=== PATIENT | male | born 1985 | race Caucasian/White ===

== ENCOUNTER 2019-11-14 13:55 | Outpatient (REF) | payer MEDICAID, SELFPAY ==
[2019-11-18 07:42] LABS: Patient Race White; SARS-CoV-2 RNA Undetected (Undetected); SARS-CoV-2 Specimen Source Nasal
== END 2019-11-14 14:15 ==
LOC: NCHCN 13:55
PROVIDERS: PCP Nurse Practitioner Family; Visit Provider Nurse Practitioner Family
DX: Z20.828 Contact with and (suspected) exposure to other viral communicable diseases (principal)
CPT/HCPCS: U0003

== ENCOUNTER 2019-11-28 13:30 | Outpatient (REF) | payer MEDICAID, SELFPAY ==
[2019-12-01 10:57] LABS: Varicella IgG Antibody Negative (See Note)
== END 2019-11-28 13:50 ==
LOC: NCHCN 13:30
PROVIDERS: PCP Nurse Practitioner Family; Visit Provider Nurse Practitioner Family
DX: Z11.59 Encounter for screening for other viral diseases (principal)
CPT/HCPCS: 86787

== ENCOUNTER 2020-05-05 16:36 | Inpatient (IN) | payer MEDICAID, SELFPAY ==
[2020-05-05 16:39] VITALS: BP 121/75; PULSE 73; RESP 18; TEMP 36.5; O2SAT 95
--- NOTE | 2020-05-05 16:45 | DI.CT_ITS ---
EXAM: CT ABDOMEN PELVIS W CLINICAL HISTORY: right lower abdominal pain. TECHNIQUE: Imaging Protocol: Axial computed tomography images with coronal and sagittal reformatted images were created and reviewed CONTRAST MATERIAL: Intravenous: Omnipaque 100cc Oral: None COMPARISON: No exams were available for comparison FINDINGS: VISUALIZED LUNG BASES: No nodules nor pleural effusions evident. ABDOMEN: LIVER: There are no obvious focal hepatic lesions evident . GALLBLADDER/BILIARY: No obvious gallbladder pathology. CBD is not dilated. PANCREAS: No evidence of pancreatic mass nor dilatation of the pancreatic duct. SPLEEN: Spleen is not enlarged. No obvious intrasplenic lesions. Splenic and portal veins are paten t. ADRENALS: There are no significant adrenal masses. KIDNEYS:No cysts evident. No solid renal masses. No calculi nor hydronephrosis.. ABDOMINAL AORTA: Abdominal aorta is not enlarged. LYMPH NODES:There is no retroperitineal nor paraaortic adenopathy. ABDOMINAL WALL/GI: No evidence of significant anterior abdominal wall hernia. Long segment of distal small bowel loop is diffusely transmural edematous and there is some free flui d in the pelvis. Findings are consistent with enteritis/inflammatory bowel disease. PELVIS: GI: The appendix is retrocecal. Measures 7-8 millimeter diameter. Does not contain appendicular. V isaiah mild streaking around the appendix. No perforation. Appendix is filled with fluid. There is no air seen within the appendix. LYMPH NODES: There is no intrapelvic nor inguinal adenopathy. REPRODUCTIVE: No significant acute findings URINARY BLADDER: No calculi nor obvious masses evident OSSEOUS: No osseous lesions but there is ankylosis of the sacroiliac joints. IMPRESSION: 1. There is diffuse transmural enteritis of lung segment of the distal ileum. Most probably consiste nt with inflammatory bowel disease, particularly since there is also ankylosis of the sacroiliac join ts. 2. Small amount of free fluid in the pelvis. I suspect this is from the edema of the small bowel loo ps. 3. The stomach wall also appears somewhat edematous. 4. Appendix is fluid-filled with enhancing wall and exhibits diameter 7-8 millimeters. There is no a ir in the appendix. There is no appendicolith. No evidence of rupture. Possible low-grade a append icitis. The appendix is retrocecal in position. RADIATION DOSE DELIVERED: 658.38mGy.cm Total DLP DATA REPOSITORY: All CT scans at this facility are submitted to the National Radiology Data Registry (NRDR) Dose Index Registry (DIR) with the [employer] (A[employer]). RADIATION OPTIMIZATION: All CT scans at this facility use at least one of these dose optimization te chniques: automated exposure control; mA and/or kV adjustment per patient size (includes targeted exa ms where dose is matched to clinical indication); or iterative reconstruction.
--- NOTE | 2020-05-05 16:50 | ED.GENADUL_ITS ---
Discharge Plan Disposition Patient Disposition: [facility] INPATIENT Condition: Stable Discharge Details Chief Complaint: Abd Prob Clinical Impression: Abdominal pain, Enteritis Primary Care Provider: Regla Reyes ED Provider: Jovanni Yung Home Meds and New Rx's Prescriptions: No Action multivitamin [One Daily] 1 EACH tablet 1 ea PO DAILY RF: 0 testosterone cyp, micro (bulk) 5 GM powder 50 gm Miscellaneous WEEKLY RF: 0 levothyroxine 125 MCG tablet 1 tab PO DAILY RF: 0 ibuprofen 800 MG tablet 800 mg PO TID Qty: 30 RF: 0 fluoxetine 20 mg capsule 20 mg PO DAILY RF: 0 Enbrel SureClick 50 mg/mL (1 mL) pen injector 50 mg SUBCUT QWEEK RF: 0 Medical Decision Making 35 yo male who has had a prior total hysterectomy comes in with right lower abdominal pain since Sunday that he has never had before. He has had chills but no fevers and states nausea without vomit. Denies chest pain or dyspnea. He has tenderness in the left and right lower abdomen with guarding and no upper abdominal tenderness. Suspect appendicitis vs diverticulitis, will obtain labs and ct imaging patient remains stable and ct shows findings consistent with inflammatory bowel disease but also has findings that could be from early appendicitis. I consulted with Dr. Hernandez who reviewed the imaging and she did not feel ct showed evidence of appendicitis and felt patient did not need surgery but needed medical workup for inflammatory bowel disease. Recommends antibiotics and holding on steroids until biopsy is done. Spoke with Dr. Schmitt who accepts for admission Differential Diagnosis Differential Diagnosis: appendicitis, gastroenteritis, diverticulitis, sbo Imaging Data Radiologic Study: Attestation: I personally reviewed and interpreted this imaging study as follows: Radiologist's impression: IMPRESSION: 1. Findings suggest low-grade appendicitis 2. Enteritis of a long segment of distal ileum. This finding along with ankylosis of the sacroiliac joints is consistent with inflammatory bowel disease. 3. Enlarged inferior mesenteric lymph nodes. 4. Fecalized content in multiple loops of small bowel 5. Constipation Lab Data Lab results reviewed: Yes I reviewed the patient's lab results. HPI General Mode of arrival: ambulatory . Date/Time Provider Initiated Documentation: 05/05/20 16:37 . Limitations to Documentation: no limitations . Information obtained by: patient . History of Present Illness 35 year old M presents to the emergency department with the chief complaint of abdominal pain, described as moderate and severe, Quality is described as stabbing, and is localized to the abdomen. Patient reports no radiation. Patient started experiencing this day(s) (4) and it has been constant. No relieving factors improve symptom(s), No exacerbating factors reported . Patient did receive the following treatments prior to arrival, none Related Data Home Medications Medication Instructions Recorded Confirmed levothyroxine 1 tab PO DAILY 08/03/13 05/05/20 multivitamin [One Daily] 1 ea PO DAILY 06/18/14 05/05/20 testosterone cyp, micro (bulk) 50 gm MISCELLANEOUS WEEKLY 06/18/14 05/05/20 ibuprofen 800 mg PO TID #30 tablet 09/15/14 05/05/20 etanercept [Enbrel SureClick] 50 mg SUBCUT QWEEK 05/05/20 05/05/20 fluoxetine 20 mg PO DAILY 05/05/20 05/05/20 Previous Rx's Medication Instructions Recorded ibuprofen 800 mg PO TID #30 tablet 09/15/14 Allergies Allergy/AdvReac Type Severity Reaction Status Date / Time cefaclor [From Ceclor] AdvReac Severe Swelling/Ed Unverified 05/05/20 16:42 josefina lactose AdvReac Unverified 05/05/20 16:42 General Stated Complaint: Abd Prob PAPITO: 3 Review of Systems All systems reviewed & are unremarkable except as noted in HPI and below Constitutional Constitutional: Denies chills, Denies fever(s) and Denies weakness Cardiovascular Cardiovascular: Denies chest pain and Denies dyspnea Respiratory Respiratory: Denies cough and Denies dyspnea Gastrointestinal Gastrointestinal: Reports abdominal pain Genitourinary Genitourinary: Denies dysuria Neurologic Neurologic: Denies weakness [facility] Social History Smoking/Tobacco Use Status: Former Tobacco Use Smoking risk assessment performed?: Yes Alcohol Intake: never Drug use: Never Substance use type: does not use Do you feel safe at home: Yes Exam Const General: no acute distress Orientation: alert HENMT Head: normal to inspection Ears: external ears normal General nose exam: external nose normal Mouth: moist mucous membranes Eyes General: appearance normal, both eyes and all related structures Neck Neck: normal visual inspection Resp Effort & Inspection: normal respiratory effort and able to speak in complete sentences Cardio Rate: regular rate GI Palpation: soft and tender Skin General skin exam: no rashes or lesions noted Neuro General: patient alert and patient oriented x3 Extrem General: normal to inspection Psych Mental Status: mental status grossly normal Course Vital Signs Vital signs: Vital Signs Temperature 36.5 C 05/05/20 16:39 Pulse 73 05/05/20 16:39 Respiratory Rate 18 05/05/20 16:39 Blood Pressure 121/75 05/05/20 16:39 Pulse Oximetry 95 05/05/20 16:39 Temperature 36.5 C 05/05/20 16:39 Temperature Source Skin 05/05/20 16:39 Pulse 73 05/05/20 16:39 Respiratory Rate 18 05/05/20 16:39 Blood Pressure 121/75 05/05/20 16:39 Blood Pressure Position Sitting 05/05/20 16:39 Pulse Oximetry 95 05/05/20 16:39 Oxygen Delivery Method Room Air 05/05/20 16:39 Oxygen Flow Rate 0 05/05/20 16:39 Pain Level 9 05/05/20 16:39
[2020-05-05 17:14] LABS: Abs Immature Grans 0.02 10^3/uL (0.0-0.06); Absolute Basophil Count 0.03 10^3/uL (0.0-0.2); Absolute Eosinophil Count 0.12 10^3/uL (0.0-0.7); Absolute Monocyte Count 0.72 10^3/uL (0.1-0.8); Basophils % 0.5; HGB 17.2 g/dL (13.5-17.5); Immature Grans % 0.3; MCH 30.2 pg (27.0-33.0); MCHC 34.4 % (32.0-36.0); MCV 87.9 fL (80-95); MPV 11.5 fL (8.0-11.0); Neutrophils % 65.2; Nucleated RBC 0 %; Platelet Count 181 10^3/uL (130-400); RBC 5.69 10^6/uL (4.36-5.78); RDW 12.1 % (11.8-14.1); RDW-SD 39.2 fL; WBC 5.99 10^3/uL (4.4-10.8)
[2020-05-05] MEDS: Omnipaque 350 MG/ML 100 ML BTL IJ (17:18)
[2020-05-05] MEDS: Normal Saline - Diluent 50 ML VIAL IV (17:19)
[2020-05-05] MEDS: Normal Saline Flush 10 ML SYR IVP ×2 (17:19→20:38)
[2020-05-05] MEDS: Ketorolac 15 MG/ML VIAL IVP ×2 (17:27→23:13)
[2020-05-05] MEDS: Ondansetron 4 MG/2 ML VIAL IVP (17:27)
[2020-05-05] MEDS: Normal Saline 1,000 ML 1000 ML IV (17:27)
[2020-05-05 17:33] LABS: Bilirubin Negative (Negative); Blood Negative (Negative); Clarity Clear (Clear); Glucose Negative (Negative); Ketones Negative (Negative); Leukocyte Esterase Negative (Negative); Nitrite Negative (Negative); Specific Gravity 1.015 (1.005-1.025); Urobilinogen 0.2 EU/dL (Up TO 0.2)
[2020-05-05 17:36] LABS: ALT 17 U/L (16-63); AST 12 U/L (15-37); Albumin 3.6 g/dL (3.4-5.0); Alkaline Phosphatase 73 U/L (46-116); Anion Gap 6.9 mmol/L (3-11); BUN 14 mg/dL (7-18); Bilirubin, Direct 0.1 mg/dL (0.0-0.2); Bilirubin, Total 0.5 mg/dL (0.2-1.0); CO2 32.1 mmol/L (21.0-32.0); Calcium 8.8 mg/dL (8.5-10.1); Chloride 103 mmol/L (98-107); Glucose 91 mg/dL (74-106); Lipase 113 U/L (73-393); Potassium 4.1 mmol/L (3.5-5.1); Sodium 142 mmol/L (136-145); Total Protein 7.8 g/dL (6.4-8.2)
[2020-05-05 17:46] VITALS: RESP 16
--- NOTE | 2020-05-05 17:49 | DI.VRAD_ITS ---
PROCEDURE INFORMATION: Exam: CT Abdomen And Pelvis With Contrast Exam date and time: 05/05/2020 4:57 PM Age: 35 years old Clinical indication: Other: RT lower abd pain TECHNIQUE: Imaging protocol: Computed tomography of the abdomen and pelvis with contrast. Radiation optimization: All CT scans at this facility use at least one of these dose optimization techniques: automated exposure control; mA and/or kV adjustment per patient size (includes targeted exams where dose is matched to clinical indication); or iterative reconstruction. Contrast material: OMNIPAQUE 350; Contrast volume: 100 ml; Contrast route: INTRAVENOUS (IV); COMPARISON: No relevant prior studies available. FINDINGS: Liver: Normal. No mass. Gallbladder and bile ducts: Normal. No calcified stones. No ductal dilation. Pancreas: Normal. No ductal dilation. Spleen: Normal. No splenomegaly. Adrenal glands: Normal. No mass. Kidneys and ureters: Normal. No hydronephrosis. Stomach and bowel: Diffuse edema and thickening of the wall of a long segment of distal ileum with enhancement of the mucosa. This is consistent with enteritis. No fistula is identified. Moderate to large amount of stool in the colon. No evidence of obstruction. Large amount of gas in the rectum. Appendix: Mildly dilated appendix measuring 8 mm in diameter with a mildly thickened and enhancing wall and minimal periappendiceal soft tissue stranding. The appendix has a retrocecal position and extends posteriorly and superior from the cecum, best demonstrated axial series 4 images 41-44. Intraperitoneal space: Small amount of free fluid in the pelvis. Vasculature: Unremarkable. No abdominal aortic aneurysm. Lymph nodes: Enlarged mesenteric lymph nodes, especially in the right lower quadrant where there is a prominent conglomeration enlarged lymph nodes. This is best seen on axial series 4, images 40 through 51. Urinary bladder: Unremarkable as visualized. Reproductive: Unremarkable as visualized. Bones/joints: Degenerative disc disease at the lumbosacral junction. Ankylosis of the sacroiliac joints. Soft tissues: Unremarkable. IMPRESSION: 1. Findings suggest low-grade appendicitis 2. Enteritis of a long segment of distal ileum. This finding along with ankylosis of the sacroiliac joints is consistent with inflammatory bowel disease. 3. Enlarged inferior mesenteric lymph nodes. 4. Fecalized content in multiple loops of small bowel 5. Constipation THIS REPORT CONTAINS FINDINGS THAT MAY BE CRITICAL TO PATIENT CARE. The findings were verbally communicated via telephone conference with Jovanni Yung at 5:47 PM EDT on 05/05/2020. The findings were acknowledged and understood. Dictated and Authenticated by: Myriam Campuzano MD. Ordering:ANGELA Baig MD
[2020-05-05] MEDS: CIPROFLOXACIN 400 MG/200 ML BAG 200 MG IVPB (18:26)
[2020-05-05] MEDS: metroNIDAZOLE 500 MG/100 ML BAG 100 MG IVPB (18:26)
[2020-05-05 18:49] VITALS: BP 104/66; PULSE 57; RESP 16; TEMP 36.2; O2SAT 100
--- NOTE | 2020-05-05 19:34 | W.PM.HP.N ---
Date of service: 05/05/20 Time of Service: 19:34 Assessment and Plan Assessment and plan (1) Enteritis: Status: Acute Assessment and plan: Concerning for inflammatory bowel disease in person with ankylosing spondylitis. General surgery consulted. Suggested holding off on steroids for now. Considering colonoscopy with bx. Covering possible bacterial infectious etiology; patient with depressed immunity due to Enbrel. Cont Cipro and Flagyl IV that was initiated in the ED. Some mild relief in pain with Toradol IV in ED. Will continue prn. Dilaudid 0.5mg IV Q4H prn. PRN phenergan for nausea. 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 (4) Constipation: Status: Acute Assessment and plan: Initiate miralax BID and give Senna now. Surgery considering colonoscopy with bx so may initiate a bowel prep tomorrow. History of Present Illness History of Present Illness Chief Complaint: Abd pain Narrative: Cheng is a 35 yo whose gender identity is male and has a PMH of ankylosing spondylitis, meet's thyroiditis, recent kelsea esophagitis. He presented to the ED with a 5 day history of generalized lower abd pain. Pain described as stabbing. He has experienced nausea but no emesis. No diarrhea; tends to be constipated. + chills, no fever. No SOA, cough. Back discomfort that he thinks is due to being in bed for 5 days and not due to his ankylosis. In the ED his CT abd/pelvis showed: 1. Findings suggest low-grade appendicitis 2. Enteritis of a long segment of distal ileum. This finding along with ankylosis of the sacroiliac joints is consistent with inflammatory bowel disease. 3. Enlarged inferior mesenteric lymph nodes. 4. Fecalized content in multiple loops of small bowel 5. Constipation General surgery was consulted and will follow. The appendix findings were though to likely be to reactive disease related to the enteritis. WBC count normal. K+ normal. Mg+ ordered/pending. BUN and creatinine normal. Bilirubin normal AST 12 (low), ALT 17. No h/o inflammatory bowel. Review of Systems All systems reviewed & are unremarkable except as noted in HPI and below PFSH Social History Smoking/Tobacco Use Status: Former Tobacco Use Smoking risk assessment performed?: Yes Alcohol Intake: never Drug use: Never Substance use type: does not use Do you feel safe at home: Yes Meds Home Medications and Allergies Allergies Allergy/AdvReac Type Severity Reaction Status Date / Time cefaclor [From Ceclor] AdvReac Severe Swelling/Ed Unverified 05/05/20 16:42 josefina lactose AdvReac Unverified 05/05/20 16:42 Home Medications Medication Instructions Recorded Confirmed Type levothyroxine 1 tab PO DAILY 08/03/13 05/05/20 History multivitamin [One Daily] 1 ea PO DAILY 06/18/14 05/05/20 History testosterone cyp, micro (bulk) 50 gm MISCELLANEOUS WEEKLY 06/18/14 05/05/20 History ibuprofen 800 mg PO TID #30 tablet 09/15/14 05/05/20 Rx etanercept [Enbrel SureClick] 50 mg SUBCUT QWEEK 05/05/20 05/05/20 History fluoxetine 20 mg PO DAILY 05/05/20 05/05/20 History Exam Narrative Exam Narrative: Sitting on edge of bed. Const General: cooperative and no acute distress Nutritional Appearance: thin Orientation: alert and oriented to person Eyes Sclera: sclerae normal Pupils: PERRL Resp Effort & Inspection: normal respiratory effort Auscultation: clear to auscultation bilaterally Cardio Rate: regular rate Rhythm: regular rhythm Heart Sounds: S1 normal and S2 normal GI Palpation: soft and tender in the LLQ and in the RLQ; with no rebound tenderness Skin General skin exam: no rashes or lesions noted Neuro General: no focal motor deficits Cognition: normal cognition Speech: speech normal Extrem General: no pedal edema and no calf tenderness Psych Appearance: grossly normal Mental Status: mental status grossly normal Speech and Movement: speech and movement normal Affect: normal affect Results Labs Result diagrams: 05/05/20 16:50 05/05/20 16:50 Labs: Laboratory Results - last 24 hr 05/05/20 05/05/20 05/05/20 16:50 16:50 16:50 WBC 5.99 RBC 5.69 Hgb 17.2 Hct 50.0 MCV 87.9 MCH 30.2 MCHC 34.4 RDW 12.1 Plt Count 181 MPV 11.5 H Immature Gran % 0.3 Neutrophils % 65.2 Lymphocytes % 20.0 Monocytes % 12.0 Eosinophils % 2.0 Basophils % 0.5 Nucleated RBC % 0 Absolute Neutrophils 3.90 Absolute Lymphocytes 1.20 Absolute Monocytes 0.72 Absolute Eosinophils 0.12 Absolute Basophils 0.03 Sodium 142 Potassium 4.1 Chloride 103 Carbon Dioxide 32.1 H Anion Gap 6.9 BUN 14 Creatinine 1.0 Estimated GFR/1.73 m2 >= 60.00 Glucose 91 Calcium 8.8 Total Bilirubin 0.5 Conjugated Bilirubin 0.1 AST 12 L ALT 17 Alkaline Phosphatase 73 Total Protein 7.8 Albumin 3.6 Lipase 113 Urine Color Yellow Urine Clarity Clear Urine pH 7.0 Ur Specific [place] 1.015 Urine Protein Negative Urine Ketones Negative Urine Blood Negative Urine Nitrite Negative Urine Bilirubin Negative Urine Urobilinogen 0.2 Ur Leukocyte Esterase Negative Urine Glucose Negative COVID-19 Source 05/05/20 18:05 WBC RBC Hgb Hct MCV MCH MCHC RDW Plt Count MPV Immature Gran % Neutrophils % Lymphocytes % Monocytes % Eosinophils % Basophils % Nucleated RBC % Absolute Neutrophils Absolute Lymphocytes Absolute Monocytes Absolute Eosinophils Absolute Basophils Sodium Potassium Chloride Carbon Dioxide Anion Gap BUN Creatinine Estimated GFR/1.73 m2 Glucose Calcium Total Bilirubin Conjugated Bilirubin AST ALT Alkaline Phosphatase Total Protein Albumin Lipase Urine Color Urine Clarity Urine pH Ur Specific [place] Urine Protein Urine Ketones Urine Blood Urine Nitrite Urine Bilirubin Urine Urobilinogen Ur Leukocyte Esterase Urine Glucose COVID-19 Source Nasopharyx Last Vital Signs Temp 36.2 C L 05/05/20 18:49 Pulse 57 L 05/05/20 18:49 Resp 16 05/05/20 18:49 BP 104/66 05/05/20 18:49 Pulse Ox 100 05/05/20 18:49 COVID-19 Screening Have you, or household traveled for leisure in last 14 days?: No Had IN PERSON contact w/suspected or confirmed C-19 person: No
[2020-05-05 19:35] VITALS: BP 102/65; PULSE 60; RESP 17; TEMP 36.9; O2SAT 99
[2020-05-05 20:21] LABS: Magnesium 2.1 mg/dL (1.8-2.4)
[2020-05-05] MEDS: Heparin 5,000 UNITS/ML VIAL 5000 UNITS SC (20:36)
[2020-05-05] MEDS: HYDROmorphone 2 MG/ML VIAL 0.5 MG IVP (20:36)
[2020-05-05] MEDS: Normal Saline 1,000 ML 80 ML IV (20:36)
[2020-05-05] MEDS: Polyethylene Glycol 3350 17 GM PACKET PO (20:37)
[2020-05-05] MEDS: Senna TAB 1 TAB PO (20:38)
[2020-05-05 22:32] LABS: COVID-19 PCR Negative (Negative)
[2020-05-05 23:20] VITALS: BP 91/53; PULSE 64; RESP 18; TEMP 37.2; O2SAT 96
[2020-05-06] MEDS: metroNIDAZOLE 500 MG/100 ML BAG 100 MG IVPB ×3 (02:27→18:11)
[2020-05-06] MEDS: Heparin 5,000 UNITS/ML VIAL 5000 UNITS SC ×3 (04:19→20:05)
[2020-05-06] MEDS: Levothyroxine 125 MCG TAB PO (06:32)
[2020-05-06] MEDS: CIPROFLOXACIN 200 MG/100 ML BAG 100 MG IVPB ×2 (06:32→18:11)
[2020-05-06 07:26] LABS: Abs Immature Grans 0.01 10^3/uL (0.0-0.06); Absolute Basophil Count 0.02 10^3/uL (0.0-0.2); Absolute Eosinophil Count 0.17 10^3/uL (0.0-0.7); Absolute Lymphocyte Count 1.29 10^3/uL (1.2-3.4); Absolute Monocyte Count 0.56 10^3/uL (0.1-0.8); Absolute Neutrophil Count 2.55 10^3/uL (1.2-6.7); Basophils % 0.4; Eosinophils % 3.7; HCT 43.1 % (40.0-50.0); HGB 14.4 g/dL (13.5-17.5); Immature Grans % 0.2; MCH 29.7 pg (27.0-33.0); MCHC 33.4 % (32.0-36.0); MCV 88.9 fL (80-95); MPV 11.6 fL (8.0-11.0); Monocytes % 12.2; Neutrophils % 55.5; Nucleated RBC 0 %; Platelet Count 151 10^3/uL (130-400); RBC 4.85 10^6/uL (4.36-5.78); RDW 11.9 % (11.8-14.1); RDW-SD 39.2 fL
[2020-05-06 07:48] LABS: ALT 10 U/L (16-63); AST 8 U/L (15-37); Albumin 2.8 g/dL (3.4-5.0); Alkaline Phosphatase 57 U/L (46-116); Anion Gap 6.3 mmol/L (3-11); BUN 11 mg/dL (7-18); Bilirubin, Total 0.4 mg/dL (0.2-1.0); CO2 29.7 mmol/L (21.0-32.0); Calcium 8.4 mg/dL (8.5-10.1); Chloride 106 mmol/L (98-107); Glucose 89 mg/dL (74-106); Potassium 4.2 mmol/L (3.5-5.1); Sodium 142 mmol/L (136-145); Total Protein 6.4 g/dL (6.4-8.2)
[2020-05-06 08:15] VITALS: BP 86/54; PULSE 53; RESP 18; TEMP 36.4; O2SAT 98
[2020-05-06] MEDS: Polyethylene Glycol 3350 17 GM PACKET PO (08:24)
[2020-05-06] MEDS: FLUoxetine 20 MG CAP PO (08:24)
[2020-05-06 08:56] LABS: C-Reactive Protein 3.42 mg/dL (0.0-0.3)
--- NOTE | 2020-05-06 09:08 | PDOC.CMIN ---
- If Service Date Differs Date of service: 05/06/20 Time of Service: 09:08 Care Management Initial Assess REASON FOR HOSPITALIZATION:: Enteritis PAST MEDICAL HISTORY/PAST SURGICAL HISTORY:: ankylosing spondylitis PREVIOUS FUNCTIONAL STATUS/SOCIAL/FAMILY SUPPORTS:: Cheng lives in a single family home in [place] with 2 roomates. He has recently (November,) relocated back to the area from [facility] where he has been living for the past 4 years. 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 He [id number] 2 women as his strongest supports but neither one lives in the area. Cheng has ankylosing spondylitis which limits some activites but is independent with all self care and ADL. he receives food stamps but no other services. CURRENT FUNCTIONAL STATUS:: Cheng was sitting up in bed when CM met with him. He was pleasant and open to conversation. Cheng shared that he did not sleep well last night and is tired today. He attributed his lack of sleep to pain and being in a different environment with unfamiliar sounds and routines. Cheng grew up in [place], [place] and has an older brother and a sister. Cheng talked a bit about his past medical issues and current condition. 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 He did share that he continues to receive assistance from the [employer]. ADVANCE DIRECTIVES:: none on file. not intereested at this time Has patient been provided with info about the portal/API?: Yes Did the patient sign up for the portal?: No CODE STATUS:: Full Code INSURANCE COVERAGE / FINANCIAL ISSUES:: Medicaid CURRENT HOME/COMMUNITY SERVICES/EQUIPMENT:: [employer] PRIMARY CARE PHYSICIAN:: michelle Reyes POTENTIAL DISCHARGE NEEDS:: Follow up with PCP and discharge plan of care PATIENT/FAMILY EDUCATION NEEDS:: Review of discharge instructions, follow up plan, limitations, [employer] TRANSPORTATION:: via private vehicle with friends PLAN:: Cheng will likely return home with no new services. He will folllow up with his surgeon, PCP and discharge plan of care and transport with friends. CM will continue to support Cheng and assess fro discharge planning needs.
[2020-05-06] MEDS: Normal Saline 1,000 ML 80 ML IV ×2 (11:51→22:55)
--- NOTE | 2020-05-06 13:02 | SCONE_ITS ---
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 Toney. He feels there is a high likelihood of croh'ns. He is o cipro/flagyl. stool studies were not done and I did order these. Although he has been on abx for 12 hrs. CRP/pANCA ordered as well. We will plan on doing a CE in the am. risk: bleeding/infection/perforation of colon (which means surgery) and complications of anesthesia (aspiration). We decided that we did not want to start steroids at this point- w/ out more of a definative answer. The pt is not in critical condition and is stable. Further recommendations to follow after CE. CRp was 2.4 (5) Enteritis: Status: Acute History of Present Illness Narrative: The patient is a 35-year-old who's gender identity is male. He underwent gender reassignment surgery in 2007. He has been on hormone therapy longstanding. On 05/05, He presented to the ED with about 4 to 5 days of abdominal pain. He has not traveled outside of the [facility]. He denies any unusual foods or activities. He has not had a change in medications or supplements. He has had no recent contact with anyone who has been ill. There are no new pets in the home. He denies any trauma or accidents. He normally does not have problems with abdominal pain; he has never had anything like this before. His bowels are normally regular. He has no problems with constipation or diarrhea or bloody bm's. The pain is diffuse but he points more to his tayler-umbilical area. he complains of abdominal pain and distention. He has actually been obstipated. He has not vomited. He is passing gas. he has not had problems with abdominal pain or infections in the past. He was recently diagnosed with ankylosing spondylitis and has been on Enbrel every 2 weeks. He has held the Enbrel for the last 2 weeks because he was not feeling well. He just started the Enbrel in January 2020. He thinks he has had the ankylosing spondylitis for quite some time but it was not diagnosed until recently. He has a paternal cousin who is 5 years younger than him who does have Crohn's. There is no family history of colorectal cancer. Since he was admitted to the floor, he thinks he feels maybe a little bit better. He has no appetite. The pain is slightly better. He has not had a bowel movement since he has been up on the floor. No fever and chills. No nausea vomiting. He has not had any weight loss prior to this admission. Hosp H&P: He presented to the ED with a 5 day history of generalized lower abd pain. Pain described as stabbing. He has experienced nausea but no emesis. No diarrhea; tends to be constipated. + chills, no fever. No SOA, cough. Back discomfort that he thinks is due to being in bed for 5 days and not due to his a nkylosis. 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 Person who has undergone gender reassignment surgery Surgical History S/P arthroscopic knee surgery S/P bilateral mastectomy S/p bilateral myringotomy with tube placement S/P KIRTI (total abdominal hysterectomy) s/p SBO also S/P wisdom tooth extraction Social History Smoking/Tobacco Use Status: Former Tobacco Use Smoking risk assessment performed?: Yes Alcohol Intake: never Drug use: Never Substance use type: does not use Do you feel safe at home: Yes Exam Const General: cooperative, healthy appearing, comfortable, no acute distress, well developed and well groomed Nutritional Appearance: average body habitus and well nourished Orientation: alert, awake and oriented x3 HENMT Head: normal to inspection, normocephalic and atraumatic Ears: hearing grossly normal bilaterally and external ears normal General nose exam: external nose normal Face and sinus: normal facial exam and sinuses nontender Mouth: oral mucosae normal, lip normal, tongue normal and moist mucous membranes Teeth and gingiva: dentition normal Eyes General: appearance normal, both eyes and all related structures Conjunctivae: conjunctivae normal Sclera: sclerae normal Pupils: PERRL Neck Neck: normal visual inspection and full ROM Chest Chest: normal inspection of the chest Resp Effort & Inspection: normal respiratory effort, able to speak in complete s entences, no cough, no nasal flaring, not tachypneic and no use of accessory muscles Auscultation: clear to auscultation bilaterally, no rales, no rhonchi and no wheezes Cardio Jugular venous pressure: no JVD Rate: regular rate Rhythm: regular rhythm GI Inspection: normal to inspection, no edema and distended Palpation: soft, no hernias, no masses, tender (mild) and No ascites Auscultation: hypoactive bowel sounds Other: not done Skin General skin exam: no rashes or lesions noted Trauma: no lacerations or abrasions Neuro General: patient alert, patient oriented x3, oriented, gait normal, moves all extremities, no focal motor deficits and CN's II-XI intact bilaterally Cognition: normal cognition Speech: speech normal Gait: normal gait Motor: muscle tone normal throughout Extrem General: normal to inspection, full ROM and no clubbing, cyanosis or edema Psych Appearance: grossly normal and well kempt Mental Status: mental status grossly normal Speech and Movement: speech and movement normal Affect: normal affect Results Last Vital Signs Temp 36.4 C L 05/06/20 08:15 Pulse 53 L 05/06/20 08:15 Resp 18 05/06/20 08:15 BP 86/54 L 05/06/20 08:15 Pulse Ox 98 05/06/20 08:15 Labs Result diagrams: 05/06/20 06:55 05/06/20 06:55 Labs: Laboratory Results - last 24 hr 05/05/20 05/05/20 05/05/20 16:50 16:50 16:50 WBC 5.99 RBC 5.69 Hgb 17.2 Hct 50.0 MCV 87.9 MCH 30.2 MCHC 34.4 RDW 12.1 Plt Count 181 MPV 11.5 H Immature Gran % 0.3 Neutrophils % 65.2 Lymphocytes % 20.0 Monocytes % 12.0 Eosinophils % 2.0 Basophils % 0.5 Nucleated RBC % 0 Absolute Neutrophils 3.90 Absolute Lymphocytes 1.20 Absolute Monocytes 0.72 Absolute Eosinophils 0.12 Absolute Basophils 0.03 Sodium 142 Potassium 4.1 Chloride 103 Carbon Dioxide 32.1 H Anion Gap 6.9 BUN 14 Creatinine 1.0 Estimated GFR/1.73 m2 >= 60.00 Glucose 91 Calcium 8.8 Magnesium Total Bilirubin 0.5 Conjugated Bilirubin 0.1 AST 12 L ALT 17 Alkaline Phosphatase 73 C-Reactive Protein Total Protein 7.8 Albumin 3.6 Lipase 113 Urine Color Yellow Urine Clarity Clear Urine pH 7.0 Ur Specific [place] 1.015 Urine Protein Negative Urine Ketones Negative Urine Blood Negative Urine Nitrite Negative Urine Bilirubin Negative Urine Urobilinogen 0.2 Ur Leukocyte Esterase Negative Urine Glucose Negative ANCA Immunofluorescen ANCA Titer ANCA Pattern COVID-19 Source SARS-CoV-2 (PCR) 05/05/20 05/05/20 05/06/20 16:50 18:05 06:55 WBC RBC Hgb Hct MCV MCH MCHC RDW Plt Count MPV Immature Gran % Neutrophils % Lymphocytes % Monocytes % Eosinophils % Basophils % Nucleated RBC % Absolute Neutrophils Absolute Lymphocytes Absolute Monocytes Absolute Eosinophils Absolute Basophils Sodium 142 Potassium 4.2 Chloride 106 Carbon Dioxide 29.7 Anion Gap 6.3 BUN 11 Creatinine 1.0 Estimated GFR/1.73 m2 >= 60.00 Glucose 89 Calcium 8.4 L Magnesium 2.1 Total Bilirubin 0.4 Conjugated Bilirubin AST 8 L ALT 10 L Alkaline Phosphatase 57 C-Reactive Protein 3.42 H Total Protein 6.4 Albumin 2.8 L Lipase Urine Color Urine Clarity Urine pH Ur Specific [place] Urine Protein Urine Ketones Urine Blood Urine Nitrite Urine Bilirubin Urine Urobilinogen Ur Leukocyte Esterase Urine Glucose ANCA Immunofluorescen ANCA Titer ANCA Pattern COVID-19 Source Nasopharyx SARS-CoV-2 (PCR) Negative 05/06/20 05/06/20 06:55 Unknown WBC 4.60 RBC 4.85 Hgb 14.4 D Hct 43.1 MCV 88.9 MCH 29.7 MCHC 33.4 RDW 11.9 Plt Count 151 MPV 11.6 H Immature Gran % 0.2 Neutrophils % 55.5 Lymphocytes % 28.0 Monocytes % 12.2 Eosinophils % 3.7 Basophils % 0.4 Nucleated RBC % 0 Absolute Neutrophils 2.55 Absolute Lymphocytes 1.29 Absolute Monocytes 0.56 Absolute Eosinophils 0.17 Absolute Basophils 0.02 Sodium Potassium Chloride Carbon Dioxide Anion Gap BUN Creatinine Estimated GFR/1.73 m2 Glucose Calcium Magnesium Total Bilirubin Conjugated Bilirubin AST ALT Alkaline Phosphatase C-Reactive Protein Total Protein Albumin Lipase Urine Color Urine Clarity Urine pH Ur Specific [place] Urine Protein Urine Ketones Urine Blood Urine Nitrite Urine Bilirubin Urine Urobilinogen Ur Leukocyte Esterase Urine Glucose ANCA Immunofluorescen Cancelled ANCA Titer Cancelled ANCA Pattern Cancelled COVID-19 Source SARS-CoV-2 (PCR)
[2020-05-06] MEDS: HYDROmorphone 2 MG/ML VIAL 0.5 MG IVP (13:29)
[2020-05-06] MEDS: Normal Saline 50 ML 200 ML (13:30)
[2020-05-06] MEDS: Bisacodyl 5 MG TABEC 10 MG PO ×2 (13:30→18:11)
--- NOTE | 2020-05-06 15:02 | PGE_ITS ---
Date of Service Date of service: 05/06/20 Time of Service: 15:02 Assessment and Plan Assessment and plan (1) Enteritis: Status: Acute Assessment and plan: was started on cipro/flagyl, surgery following and plan for endoscopy tomorrow. prep started. 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 surgery following. continue pain management. surgery following, continue antibiotics and closely monitor. discussed with Dr Fermin Subjective Subjective Patient reports: no new complaints, feels better, tolerating liquids well and afebrile Exam Const General: cooperative, frail appearing and ill appearing chronically Nutritional Appearance: thin Orientation: alert, awake and oriented x3 HENMT Head: normal to inspection, normocephalic and atraumatic Mouth: moist mucous membranes abnormal Resp Effort & Inspection: normal respiratory effort Auscultation: clear to auscultation bilaterally Cardio Rate: regular rate Rhythm: regular rhythm GI Inspection: normal to inspection Palpation: soft Auscultation: normal bowel sounds Skin General skin exam: no rashes or lesions noted Neuro General: patient alert, patient awake, patient oriented x3 and no focal motor deficits Extrem General: normal to inspection, full ROM and no pedal edema Objective Last Vital Signs Temp 36.4 C L 05/06/20 08:15 Pulse 53 L 05/06/20 08:15 Resp 18 05/06/20 08:15 BP 86/54 L 05/06/20 08:15 Pulse Ox 98 05/06/20 08:15 Laboratory Results - last 24 hr 05/05/20 05/05/20 05/05/20 16:50 16:50 16:50 WBC 5.99 RBC 5.69 Hgb 17.2 Hct 50.0 MCV 87.9 MCH 30.2 MCHC 34.4 RDW 12.1 Plt Count 181 MPV 11.5 H Immature Gran % 0.3 Neutrophils % 65.2 Lymphocytes % 20.0 Monocytes % 12.0 Eosinophils % 2.0 Basophils % 0.5 Nucleated RBC % 0 Absolute Neutrophils 3.90 Absolute Lymphocytes 1.20 Absolute Monocytes 0.72 Absolute Eosinophils 0.12 Absolute Basophils 0.03 Sodium 142 Potassium 4.1 Chloride 103 Carbon Dioxide 32.1 H Anion Gap 6.9 BUN 14 Creatinine 1.0 Estimated GFR/1.73 m2 >= 60.00 Glucose 91 Calcium 8.8 Magnesium Total Bilirubin 0.5 Conjugated Bilirubin 0.1 AST 12 L ALT 17 Alkaline Phosphatase 73 C-Reactive Protein Total Protein 7.8 Albumin 3.6 Lipase 113 Urine Color Yellow Urine Clarity Clear Urine pH 7.0 Ur Specific [place] 1.015 Urine Protein Negative Urine Ketones Negative Urine Blood Negative Urine Nitrite Negative Urine Bilirubin Negative Urine Urobilinogen 0.2 Ur Leukocyte Esterase Negative Urine Glucose Negative ANCA Immunofluorescen ANCA Titer ANCA Pattern COVID-19 Source SARS-CoV-2 (PCR) 05/05/20 05/05/20 05/06/20 16:50 18:05 06:55 WBC RBC Hgb Hct MCV MCH MCHC RDW Plt Count MPV Immature Gran % Neutrophils % Lymphocytes % Monocytes % Eosinophils % Basophils % Nucleated RBC % Absolute Neutrophils Absolute Lymphocytes Absolute Monocytes Absolute Eosinophils Absolute Basophils Sodium 142 Potassium 4.2 Chloride 106 Carbon Dioxide 29.7 Anion Gap 6.3 BUN 11 Creatinine 1.0 Estimated GFR/1.73 m2 >= 60.00 Glucose 89 Calcium 8.4 L Magnesium 2.1 Total Bilirubin 0.4 Conjugated Bilirubin AST 8 L ALT 10 L Alkaline Phosphatase 57 C-Reactive Protein 3.42 H Total Protein 6.4 Albumin 2.8 L Lipase Urine Color Urine Clarity Urine pH Ur Specific [place] Urine Protein Urine Ketones Urine Blood Urine Nitrite Urine Bilirubin Urine Urobilinogen Ur Leukocyte Esterase Urine Glucose ANCA Immunofluorescen ANCA Titer ANCA Pattern COVID-19 Source Nasopharyx SARS-CoV-2 (PCR) Negative 05/06/20 05/06/20 06:55 Unknown WBC 4.60 RBC 4.85 Hgb 14.4 D Hct 43.1 MCV 88.9 MCH 29.7 MCHC 33.4 RDW 11.9 Plt Count 151 MPV 11.6 H Immature Gran % 0.2 Neutrophils % 55.5 Lymphocytes % 28.0 Monocytes % 12.2 Eosinophils % 3.7 Basophils % 0.4 Nucleated RBC % 0 Absolute Neutrophils 2.55 Absolute Lymphocytes 1.29 Absolute Monocytes 0.56 Absolute Eosinophils 0.17 Absolute Basophils 0.02 Sodium Potassium Chloride Carbon Dioxide Anion Gap BUN Creatinine Estimated GFR/1.73 m2 Glucose Calcium Magnesium Total Bilirubin Conjugated Bilirubin AST ALT Alkaline Phosphatase C-Reactive Protein Total Protein Albumin Lipase Urine Color Urine Clarity Urine pH Ur Specific [place] Urine Protein Urine Ketones Urine Blood Urine Nitrite Urine Bilirubin Urine Urobilinogen Ur Leukocyte Esterase Urine Glucose ANCA Immunofluorescen Cancelled ANCA Titer Cancelled ANCA Pattern Cancelled COVID-19 Source SARS-CoV-2 (PCR)
[2020-05-06] MEDS: Polyethylene Glycol 3350 238 GM BTL PO (15:49)
[2020-05-06 15:53] VITALS: BP 99/63; PULSE 50; RESP 17; TEMP 36.7; O2SAT 97
--- NOTE | 2020-05-06 15:57 | PHA.REVIEW ---
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 (Acute) Ankylosing hyperostosis [forestier], sacral and sacrococcygeal region (Acute) Abdominal pain (Acute) Enteritis (Acute) cefaclor [From Ceclor] Adverse Reaction (Severe, Unverified 05/05/20 16:42) Swelling/Edema lactose Adverse Reaction (Unverified 05/05/20 16:42) Height 5 ft 8 in Weight 64 kg - Renal Dosing Renal Dosing: BUN 11 mg/dL (7-18) 05/06/20 06:55 Creatinine 1.0 mg/dL (0.70-1.30) 05/06/20 06:55 Medications needing adjustments: Reviewed - Anticoagulation Anticoagulation: Hgb 14.4 g/dL (13.5-17.5) D 05/06/20 06:55 Hct 43.1 % (40.0-50.0) 05/06/20 06:55 Plt Count 151 10^3/uL (130-400) 05/06/20 06:55 Creatinine 1.0 mg/dL (0.70-1.30) 05/06/20 06:55 DVT Prohphylaxis: N/A Therapeutic Anticoagulation: N/A - Opiate Usage Evaluate Pain Scale/Pains Meds: Reviewed Scheduled Bowel Reg ordered if on Opiates?: Yes - Relevant Labs Sodium 142 mmol/L (136-145) 05/06/20 06:55 Potassium 4.2 mmol/L (3.5-5.1) 05/06/20 06:55 Chloride 106 mmol/L (98-107) 05/06/20 06:55 Magnesium 2.1 mg/dL (1.8-2.4) 05/05/20 16:50 C-Reactive Protein 3.42 mg/dL (0.0-0.3) H 05/06/20 06:55 Electrolytes, C-Reactive P, ESR: Reviewed - DM Control DM Control: Glucose 89 mg/dL (74-106) 05/06/20 06:55 Insulin Dosing: N/A - Heart Failure/PR EF%, NITA's, B-Blockers, Diuretics: N/A - BP Control BP Control: Blood Pressure 86/54 If elevated: Reviewed - Qtc Review If Elevated: N/A - IV to PO Switch IV Medications: Reviewed - Home Meds Home Med List reviewed: Intervened Relevent Home Meds Not ordered & why?: enbrel (once weekly but has been off for 2 wks due to esophageal candidiasis), famotidine - just added per 90 day supply filled 2/3 per ext. rx history - Current meds Current Medication Order Review: Reviewed - Comments Comments/Follow Ups: Cipro 200mg IV q12h + Flagyl 500mg q8h
[2020-05-06] MEDS: Metoclopramide 10 MG/2 ML VIAL IVP (20:05)
[2020-05-06 23:43] VITALS: BP 99/62; PULSE 50; RESP 17; TEMP 36.5; O2SAT 98
[2020-05-07] MEDS: metroNIDAZOLE 500 MG/100 ML BAG 100 MG IVPB ×2 (01:23→09:59)
[2020-05-07] MEDS: Heparin 5,000 UNITS/ML VIAL 5000 UNITS SC ×2 (03:56→20:24)
[2020-05-07] MEDS: CIPROFLOXACIN 200 MG/100 ML BAG 100 MG IVPB (06:22)
[2020-05-07] MEDS: Levothyroxine 125 MCG TAB PO (06:22)
[2020-05-07 07:30] VITALS: BP 97/62; PULSE 50; RESP 13; TEMP 36.8; O2SAT 97
[2020-05-07] MEDS: FLUoxetine 20 MG CAP PO (08:08)
--- NOTE | 2020-05-07 11:09 | COLE_ITS ---
Date of service: 05/07/20 Time of Service: 11:10 Colonoscopy Report Date of procedure: 05/07/20 Pre-op diagnosis general: abdominal pain/enteritis on CT scan Post-op diagnosis procedure note: same Procedure: ce w/ bx Surgeon: Corrine Torres Anesthesia Type: General:No Airway Estimated blood loss (mL): 1 Pathology: other Complications: None Disposition: floor Prep: Miralax/Dulcolax Retraction Time: 12 mins Procedure Description: After informed consent was obtained the patient was taken to the procedure room and placed in a left decubitous position. Monitors were applied and a time out was done. The patients name, date of , procedure, allergies to medications and metal in their body was reviewed. The patient was then sedated. Once sedated and comfortable a rectal exam was done. External exam was normal. Internal exam revealed a normal sphincter tone and no palpable masses. The scope was then introduced and retrofelexed. No internal hemorrhoids were i dentified. The scope was then advanced to the cecum w/out difficulty. The TI and appendiceal orifice were identified. I Was not able to intubate the TI. The prep was good. The scope was then slowly retracted over 12 minutes back into the rectum. there Are no polyps, AVMs, or diverticula Visualized today. The mucosa is pink and healthy. Random biopsy was taken of the cecum and the rectum. All specimens are retrieved and no bleeding is noted. The scope was removed and the patient was woken up and taken back to Same day surgery in stable condition. The patient tolerated the procedure well and there were no immediate complications. Follow up: The patient should repeat the colonoscopy at age 44, unless they develop changes in bowel habits or other new gastrointestinal complaints.
--- NOTE | 2020-05-07 11:20 | BOWEL_PTH ---
PATIENT: Cheng Sanchez LOC: [id number]#:[id number] AGE/SX: 35/M ROOM: [id number] RE05/05/[address]: Alberto Schmitt MD : 1985 BED: A DIS: 05/09/2020 SPEC #: [id number] RECD: 05/07/20 12:51 STATUS: LOUISE REQ #: [id number] GREG: 05/07/20 11:[address]: Alberto Schmitt DEPT: Surgical Specimen RECD BY: Thu Andrade ENTERED: 05/07/20 12:52 SP TYPE: Bowel OTHR DR: MELY Tran PA Burnell,Regla Lochkart,DO Maykel Wetzel Aviva W Annick Kaufman, MD Leung, Christie Paul Pace, MD Carl B Petri, MD Deane Rankin, MD Stoiber, Laura M Tissues: 1 - BIOPSY BOWEL 2 - BIOPSY BOWEL Procedures: GROSS AND MICRO LEVEL 4 Comments: [id number]
[2020-05-07 12:04] VITALS: BP 84/50; PULSE 62; RESP 16; TEMP 36.5; O2SAT 97
[2020-05-07] MEDS: Breeza Beverage 473 ML BTL PO ×2 (13:02→13:03)
[2020-05-07] MEDS: Omnipaque 350 MG/ML 50 ML BTL IJ (13:03)
--- NOTE | 2020-05-07 13:10 | PGE_ITS ---
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 -will obtain CT w/ contrast -Enbrel has been held for the last 2-3wks -pd results of CT- prob start entereg. Qualifiers: Digestive disease complication type: unspecified complication Qualified Code(s): K50.119 - Crohn's disease of large intestine with unspecified complications Subjective Subjective Interval history since last seen: pt said he is feeling slightly better. Less pain and distention. He is passing gas. No blood w/ Bowel prepping. He had an EGD in [facility] at the beginning of August for dysphagia. This was how the fungal infections was found (and why he is holding the enbrel). Abdomen is soft and hypoactive but present BS. no peritonitis. Exam Resp Effort & Inspection: normal respiratory effort and able to speak in complete sentences Auscultation: clear to auscultation bilaterally Cardio Rate: regular rate Rhythm: regular rhythm GI Inspection: normal to inspection Palpation: soft, no hernias and tender (diffuse. minnimal ) Auscultation: hypoactive bowel sounds Objective Last Vital Signs Temp 36.5 C 05/07/20 12:04 Pulse 62 05/07/20 12:04 Resp 16 05/07/20 12:04 BP 84/50 L 05/07/20 12:04 Pulse Ox 97 05/07/20 12:04
--- NOTE | 2020-05-07 13:11 | PGE_ITS ---
Date of Service Date of service: 05/07/20 Time of Service: 13:12 Assessment and Plan Assessment and plan (1) Enteritis: Start date: 05/07/20 Start time: 13:16 Status: Acute Assessment and plan: Evidenced by CT, stomach wall also edematous Started on Cipro and flagyl day 2 Cscope by surgery today- unfortunately unable to pass terminal ileum d/t severe swelling. Will likely be started on steroids, surgery awaiting records from [facility]. This appears to be an IBD like chron's CT with oral contrast ordered, results pending. 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 surgery following. continue pain management. surgery following, continue antibiotics and closely monitor. discussed with Dr Fermin Subjective Subjective Patient reports: other Interval history since last seen: [place] [facility] [place] [place] Feeling nauseated. Pain most diffuse to RUQ. No evidence of gallbladder problems on CTA. He is sitting up in bed. Denies CP, SOB Exam Narrative Exam Narrative: Sitting on edge of bed. Const General: cooperative, no acute distress, frail appearing and ill appearing chronically Nutritional Appearance: thin Orientation: alert, awake, oriented x3 and oriented to person HENHI Head: normal to inspection, normocephalic and atraumatic Mouth: moist mucous membranes abnormal Eyes Sclera: sclerae normal Pupils: PERRL Resp Effort & Inspection: normal respiratory effort Auscultation: clear to auscultation bilaterally Cardio Rate: regular rate Rhythm: regular rhythm Heart Sounds: S1 normal and S2 normal GI Inspection: normal to inspection Palpation: soft and tender in the RLQ (more prominent in this quadarant and mid abd ) and in the LUQ; with no rebound tenderness Auscultation: normal bowel sounds Skin General skin exam: no rashes or lesions noted Neuro General: patient alert, patient awake, patient oriented x3 and no focal motor deficits Cognition: normal cognition Speech: speech normal Extrem General: normal to inspection, full ROM, no pedal edema and no calf tenderness Psych Appearance: grossly normal Mental Status: mental status grossly normal Speech and Movement: speech and movement normal Affect: normal affect Objective Last Vital Signs Temp 36.5 C 05/07/20 12:04 Pulse 62 05/07/20 12:04 Resp 16 05/07/20 12:04 BP 84/50 L 05/07/20 12:04 Pulse Ox 97 05/07/20 12:04
--- NOTE | 2020-05-07 13:14 | PDOC.CMPRO ---
- If Service Date Differs Date of service: 05/07/20 Time of Service: 13:14 Care Management Progress Note S/O:Cheng had an EGD with biopsy this morning. He also had a CT scan of the abdomen this afternoon so was out of his room for most of the day. Per nursing, Cheng was nauseated after his procedure this morning but responded well to a prn dose of Phenergan. he has not required any medication for pain. Cheng was sleeping this afternoon when CM came to see him and the decision was made not to wake him. A: Cheng is a 35 year old man admitted to [facility] on 05/05/20 with inflammatory bowel disease P:Cheng will likely return home with no new services. He will follow up with his surgeon, PCP and discharge plan of care and transport with friends. CM will continue to support Cheng and assess for discharge planning needs.
--- NOTE | 2020-05-07 13:38 | DI.CT_ITS ---
EXAM: CT ABDOMEN PELVIS W CLINICAL HISTORY: ? appendictiis TECHNIQUE: COMPARISON: CT CT ABDOMEN PELVIS W from 05/05/2020 FINDINGS: CT examination of the abdomen and pelvis was performed with bolus infusion of 100 cc of Omnipaque 350 . Images obtained through the lung bases are unremarkable. The liver appears normal with no evidence of a focal mass. Spleen is unremarkable in appearance.. Gallbladder and bile ducts are unremarkable. Pancreas is unremarkable in appearance. Adrenals appear normal bilaterally. Kidneys appear normal with no evidence of renal mass, hydronephrosis, or nephrolithiasis Note is made multiple enlarged mesenteric lymph nodes, most prominent in the right lower quadrant but extending to the central portion the mesentery. Abdominal aorta is of normal diameter and no major vascular abnormality is seen. Appendix is normal. Previously described abnormal distal small bowel is again noted with multiple loops irregular thick w alled bowel noted. The appendix appears normal on today's examination. There is moderate free fluid in the pelvis. There is question of irregular wall thickening rectosigm oid junction region. No free intraperitoneal air. No perforation or abscess identified. No significant abdominal wall hernia seen. Note is made of bilateral fused SI joints, the patient reportedly has a history of ankylosing spondyl itis. Impression: No evidence of appendicitis. Findings highly suggestive of inflammatory process involving portions o f the distal ileum and perhaps also the rectosigmoid. Free pelvic fluid and mesenteric adenopathy is also present consistent with an acute inflammatory process. Please correlate clinically regarding t he possibility of Crohn's disease. RADIATION DOSE DELIVERED: 730.35mGy.cm Total DLP 730.35mGy.cm Total DLP DATA REPOSITORY: All CT scans at this facility are submitted to the National Radiology Data Registry (NRDR) Dose Index Registry (DIR) with the [employer] (A[employer]). RADIATION OPTIMIZATION: All CT scans at this facility use at least one of these dose optimization te chniques: automated exposure control; mA and/or kV adjustment per patient size (includes targeted exa ms where dose is matched to clinical indication); or iterative reconstruction.
[2020-05-07 14:53] LABS: ANCA Interpretation Negative (Negative)
[2020-05-07 14:58] LABS: ANA Interpretation Negative (Negative)
[2020-05-07 15:33] VITALS: BP 100/64; PULSE 53; RESP 17; TEMP 36.4; O2SAT 98
[2020-05-07] MEDS: predniSONE 20 MG TAB 40 MG PO (15:42)
[2020-05-07] MEDS: Normal Saline 1,000 ML 80 ML IV (17:22)
[2020-05-07 23:14] LABS: Campylobacter PCR Negative (Negative); Salmonella PCR Negative (Negative); Shiga Toxin PCR Negative (Negative); Shigella/Enteroinvasive Ecoli Negative (Negative)
[2020-05-07 23:50] VITALS: BP 116/72; PULSE 58; RESP 18; TEMP 36.7; O2SAT 97
[2020-05-08] MEDS: Normal Saline Flush 10 ML SYR IVP ×3 (00:10→19:49)
[2020-05-08] MEDS: Ketorolac 15 MG/ML VIAL IVP ×3 (00:10→19:49)
[2020-05-08] MEDS: Heparin 5,000 UNITS/ML VIAL 5000 UNITS SC ×3 (04:56→19:34)
[2020-05-08] MEDS: Levothyroxine 125 MCG TAB PO (04:56)
[2020-05-08] MEDS: Normal Saline 1,000 ML 80 ML IV (05:28)
[2020-05-08 07:07] LABS: BUN 8 mg/dL (7-18); C-Reactive Protein 1.68 mg/dL (0.0-0.3); CREATININE 0.9 mg/dL (0.70-1.30); Calcium 8.7 mg/dL (8.5-10.1); Chloride 106 mmol/L (98-107); Glucose 101 mg/dL (74-106); Potassium 3.9 mmol/L (3.5-5.1); Sodium 141 mmol/L (136-145)
[2020-05-08 07:45] VITALS: BP 108/72; PULSE 58; RESP 16; TEMP 36.3; O2SAT 99
[2020-05-08] MEDS: FLUoxetine 20 MG CAP PO (07:46)
[2020-05-08] MEDS: predniSONE 20 MG TAB 40 MG PO (07:46)
[2020-05-08] MEDS: Polyethylene Glycol 3350 17 GM PACKET PO (07:51)
[2020-05-08] MEDS: Omeprazole 20 MG CAPCR PO (10:37)
--- NOTE | 2020-05-08 11:27 | W.PM.PROGNOT ---
Date of Service Date of service: 05/08/20 Time of Service: 11:27 Assessment and Plan Assessment and plan (1) Crohn's colitis: Status: Acute Assessment and plan: Cheng is a 35 year old who was admitted with abdominal pain and CT scan showing inflammation and thickening of the terminal ileum consistent with inflammatory bowel disease. The patient also has a history of ankylosing hyperostosis and was on enbrel for that. Colonoscopy was performed. Large bowel was normal. Unfortunately we were unable to advance the scope into the terminal ileum due to the swelling. Follow up CT scan with oral contrast showed increase in inflammation as well as increase in lymphadenopathy. Case was discussed with his Oven Roaster to make sure it was OK to start patient on prednisone while on Enbril. They recommended prednisone and to stop enbrel. They would like to see the patient once discharged and the plan will be for his to most likely start on greta instead of enbrel. This was discussed with patient. He will need to be discharged on 40 mg of prednisone daily x 7 days. Taper by 5 mg weekly. Follow up with Rheumatology at [facility] [place] within 1-2 weeks No follow up needed with General surgery Qualifiers: Digestive disease complication type: unspecified complication Qualified Code(s): K50.119 - Crohn's disease of large intestine with unspecified complications Subjective Subjective Interval history since last seen: Cheng is feeling better today. Pain has decreased. He still feels bloated. Most of his discomfort is in the right side. Exam Const General: cooperative, comfortable and no acute distress Orientation: alert and oriented x3 HENMT Head: normocephalic and atraumatic Resp Effort & Inspection: normal respiratory effort Auscultation: clear to auscultation bilaterally Cardio Rate: regular rate Rhythm: regular rhythm GI Inspection: normal to inspection Palpation: soft, no hepatosplenomegaly and tender (mild tenderness RLQ. No rebound or guarding) Auscultation: normal bowel sounds Objective Last Vital Signs Temp 97.3 F L 05/08/20 07:45 Pulse 58 L 05/08/20 07:45 Resp 16 05/08/20 07:45 BP 108/72 05/08/20 07:45 Pulse Ox 99 05/08/20 07:45 Laboratory Results - last 24 hr 05/06/20 05/06/20 05/08/20 06:55 21:57 06:35 Sodium 141 Potassium 3.9 Chloride 106 Carbon Dioxide 25.0 Anion Gap 10.0 BUN 8 Creatinine 0.9 Estimated GFR/1.73 m2 >= 60.00 Glucose 101 Calcium 8.7 C-Reactive Protein 1.68 H Stool Campylobacter PCR Negative Stool Salmonella PCR Negative Stool Shigella PCR Negative LOLI Titer Not Applicable LOLI Titer 2 Not Applicable LOLI Titer 3 Not Applicable LOLI Interpretation Negative ANCA Immunofluorescen Negative ANCA Titer Not Applicable ANCA Pattern Not Applicable Shiga Toxin (PCR) Negative
--- NOTE | 2020-05-08 13:23 | PDOC.CMPRO ---
- If Service Date Differs Date of service: 05/08/20 Time of Service: 13:23 Care Management Progress Note S/O: Cheng continues to improve and his diet is being advanced today. Per provider note, Cheng is experiencing less pain but still feels bloated. A complete blood count with differential is ordered for tomorrow morning. Lab work done today returns within normal limits with the exception of C-Reactive Protein which is high at 1.68. A: Cheng is a 35 year old male admitted to [facility] on 05/05/2020 for abdominal pain and inflammatory bowel disease. P: No change in plan. Cheng will likely return home with no new services. He will follow up with his [facility] zookeeper, PCP, and discharge plan of care and transport with friends. CM will continue to support Cheng and assess for discharge planning needs.
--- NOTE | 2020-05-08 14:01 | W.PM.PROGNOT ---
Date of Service Date of service: 05/08/20 Time of Service: 14:01 Assessment and Plan Assessment and plan (1) Crohn's colitis: Start date: 05/08/20 Start time: 14:09 Status: Acute Assessment and plan: Likely in setting of ankylosing hypersotosis, this is usually seen together. CT also suggests Chrons, Pain improved with Prednisone he will need to be on a long taper, with rheumatoloty f/u in 1 week, Surgery spoke with rheumatology and they will see him, stop enbrel and start patient on humaria, already feeling better in setting of steroids. Started on soft diet, recommend low fiber diet on discharge with advance as tolerated he is on oxycodone for pain this will also help with diarrhea. 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 surgery following. continue pain management. surgery following, continue antibiotics and closely monitor. discussed with Dr Cullen (5) Ankylosing hyperostosis [forestier], sacral and sacrococcygeal region: Start date: 05/08/20 Start time: 14:17 Status: Acute Assessment and plan: As above, he was on enbrel however will f/u with rheumatology and switch to greta, long steriod taper. Subjective Subjective Patient reports: feels better Interval history since last seen: Pain improved but continues to have on right side, percocet ordered for pain, this will also help with diarrhea. Able to eat without having nausea, continues to have diarrhea, 4 bouts this morning, hematest negative. Will monitor overnight. recommend low residue diet. Possible discharge tomorrow. Exam Narrative Exam Narrative: Sitting on edge of bed. Const General: cooperative, no acute distress, frail appearing and ill appearing chronically Nutritional Appearance: thin Orientation: alert, awake, oriented x3 and oriented to person [facility] Head: normal to inspection, normocephalic and atraumatic Mouth: moist mucous membranes abnormal Eyes Sclera: sclerae normal Pupils: PERRL Resp Effort & Inspection: normal respiratory effort Auscultation: clear to auscultation bilaterally Cardio Rate: regular rate Rhythm: regular rhythm Heart Sounds: S1 normal and S2 normal GI Inspection: normal to inspection Palpation: soft and tender (improved pain, RUQ pain with palpation with improvement) with no rebound tenderness Auscultation: normal bowel sounds Skin General skin exam: no rashes or lesions noted Neuro General: patient alert, patient awake, patient oriented x3 and no focal motor deficits Cognition: normal cognition Speech: speech normal Extrem General: normal to inspection, full ROM, no pedal edema and no calf tenderness Psych Appearance: grossly normal Mental Status: mental status grossly normal Speech and Movement: speech and movement normal Affect: normal affect Objective Last Vital Signs Temp 36.3 C L 05/08/20 07:45 Pulse 58 L 05/08/20 07:45 Resp 16 05/08/20 07:45 BP 108/72 05/08/20 07:45 Pulse Ox 99 05/08/20 07:45 Laboratory Results - last 24 hr 05/06/20 05/06/20 05/08/20 06:55 21:57 06:35 Sodium 141 Potassium 3.9 Chloride 106 Carbon Dioxide 25.0 Anion Gap 10.0 BUN 8 Creatinine 0.9 Estimated GFR/1.73 m2 >= 60.00 Glucose 101 Calcium 8.7 C-Reactive Protein 1.68 H Stool Campylobacter PCR Negative Stool Salmonella PCR Negative Stool Shigella PCR Negative LOLI Titer Not Applicable LOLI Titer 2 Not Applicable LOLI Titer 3 Not Applicable LOLI Interpretation Negative ANCA Immunofluorescen Negative ANCA Titer Not Applicable ANCA Pattern Not Applicable Shiga Toxin (PCR) Negative
[2020-05-08 15:47] VITALS: BP 123/72; PULSE 63; RESP 17; TEMP 36; O2SAT 99
[2020-05-08] MEDS: oxyCODONE 5 mg/Acetaminophen 325 mg TAB 1 TAB PO (15:51)
[2020-05-08 19:12] LABS: Calprotectin 482 mcg/g
[2020-05-08 23:42] VITALS: BP 122/70; PULSE 62; RESP 17; TEMP 36.6; O2SAT 98
[2020-05-09] MEDS: Omeprazole 20 MG CAPCR PO (06:52)
[2020-05-09] MEDS: Heparin 5,000 UNITS/ML VIAL 5000 UNITS SC ×2 (06:52→11:25)
[2020-05-09] MEDS: Levothyroxine 125 MCG TAB PO (06:52)
[2020-05-09 07:08] VITALS: BP 108/69; PULSE 46; RESP 18; TEMP 36.8; O2SAT 100
[2020-05-09 07:26] LABS: Abs Immature Grans 0.15 10^3/uL (0.0-0.06); Absolute Basophil Count 0.03 10^3/uL (0.0-0.2); Absolute Eosinophil Count 0.04 10^3/uL (0.0-0.7); Absolute Lymphocyte Count 1.77 10^3/uL (1.2-3.4); Absolute Monocyte Count 0.56 10^3/uL (0.1-0.8); Absolute Neutrophil Count 3.25 10^3/uL (1.2-6.7); Basophils % 0.5; Eosinophils % 0.7; HCT 40.1 % (40.0-50.0); HGB 13.6 g/dL (13.5-17.5); Immature Grans % 2.6; Lymphocytes % 30.5; MCH 29.6 pg (27.0-33.0); MCHC 33.9 % (32.0-36.0); MCV 87.2 fL (80-95); MPV 11.6 fL (8.0-11.0); Monocytes % 9.7; Nucleated RBC 0 %; Platelet Count 177 10^3/uL (130-400); RDW 12.2 % (11.8-14.1); RDW-SD 38.8 fL
[2020-05-09] MEDS: FLUoxetine 20 MG CAP PO (07:28)
[2020-05-09] MEDS: predniSONE 20 MG TAB 40 MG PO (07:28)
--- NOTE | 2020-05-09 10:37 | DSE_ITS ---
Date of service: 05/09/20 Time of Service: 10:37 DS: Diagnosis Discharge Diagnosis (1) Crohn's colitis: Start date: 05/09/20 Start time: 10:37 Status: Acute Asessment and Plan: Evidenced by CT, cscope done by Dr. Barth. unable to pass Internal Ileum d/t severe edema. CT with oral contrast ordered revealing: Findings highly suggestive of inflammatory process involving portions of the distal ileum and perhaps also the rectosigmoid. Free pelvic fluid and mesenteric adenopathy is also present consistent with an acute inflammatory process. Please correlate clinically regarding the possibility of Crohn's disease. Dr. Sue spoke with patients Dry House Attendant at [facility] Crohn's is often seen with ankylosis, they want to see Cheng in the office in the next week they want him on a long prednisone taper and will switch him to greta as an outpatient. He will need to be discharged on 40 mg of prednisone daily x 7 days. Taper by 5 mg weekly. 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 above case discussed with dr. azul Discharge Plan Disposition Patient Disposition: HOME Condition: Improving Discharge Details Reason For Visit: ABDOMINAL PAIN, INFLAMMATORY BOWEL DISEASE Admit Date/Time: 05/05/20 18:05 Admit Provider: Alberto Schmitt Attending Provider: Alberto Schmitt Primary Care Provider: Regla Reyes [facility] Course Hospital Course: 35 y.o M transgender from female, with PMH of total hysterectomy, ankylosing hyperostosis, hoshimotos thyroiditis, presented to [facility] ED with 5 day history of abdominal pain. Labs in ED unremarkable, however CT scan revealed: IMPRESSION: 1. There is diffuse transmural enteritis of lung segment of the distal ileum. Most probably consistent with inflammatory bowel disease, particularly since there is also ankylosis of the sacroiliac joints. 2. Small amount of free fluid in the pelvis. I suspect this is from the edema of the small bowel loops. 3. The stomach wall also appears somewhat edematous. 4. Appendix is fluid-filled with enhancing wall and exhibits diameter 7-8 millimeters. There is no air in the appendix. There is no appendicolith. No evidence of rupture. Possible low-grade a appendicitis. The appendix is retrocecal in position He was admitted to / for further management. He was initially placed on IV antibx however they were dcd after 2 days. Surgery was consulted. He was taken to OR for c-scope, Dr. Barth was unable to pass the TI d/t severe edema, oral contrast CT ordered this revealed. No evidence of appendicitis. Findings highly suggestive of inflammatory process involving portions of the distal ileum and perhaps also the rectosigmoid. Free pelvic fluid and mesenteric adenopathy is also present consistent with an acute inflammatory process. Please correlate clinically regarding the possibility of Crohn's disease. Patients Dry House Attendant was spoken with by surgery, and they recommended prednisone long taper, they want to seem him this week and will transition to him to [facility]. He is able to eat soft foods without nausea or vomiting, his pain is improved. Stools have improved. He is being discharged home on prednisone, pain medication, zofran prn nausea, and referral to health middle school sports coach. We will call Rheumatology to set up appt. He would like referral to health middle school sports coach and I will have dietary set one up. Home Meds and New Rx's Prescriptions: New omeprazole 20 mg Capsule,Delayed Release(Dr/Ec) 20 mg PO DAILY@0730 Qty: 30 RF: 0 prednisone 20 mg Tablet 40 mg PO DAILY Qty: 21 RF: 0 tramadol 50 mg tablet 50 mg PO DAILY Qty: 20 RF: 0 oxycodone [Roxicodone] 5 mg tablet 10 mg PO Q6H PRN PRNQty: 40 RF: 0 promethazine 12.5 mg tablet 12.5 mg PO Q6H PRNQty: 30 RF: 0 Continued multivitamin [One Daily] 1 EACH tablet 1 ea PO DAILY RF: 0 testosterone cyp, micro (bulk) 5 GM powder 50 gm Miscellaneous WEEKLY RF: 0 levothyroxine 125 MCG tablet 1 tab PO DAILY RF: 0 ibuprofen 800 MG tablet 800 mg PO TID Qty: 30 RF: 0 fluoxetine 20 mg capsule 20 mg PO DAILY RF: 0 Discontinued Enbrel SureClick 50 mg/mL (1 mL) pen injector 50 mg SUBCUT QWEEK RF: 0 famotidine 20 mg tablet 20 mg PO DAILY RF: 0 Discharge Instructions Instructions: Prednisone (By mouth), Crohn Disease (DC), Low Fiber Diet (DC), Enteritis (DC) Additional Instructions: We will call you with an appt for Rheumatology, if you do not here from us by Sunday call Reuse Technician Follow up with your PCP in 2 weeks Take pain medication prior to eating to help with pain Follow low fiber diet. I will have a health middle school sports coach follow up with you Take phenergan if you are feeling nauseated Take prednisone 40 mg daily for the next 5 days then take 35 mg for 7 days then your Dry House Attendant will continue to dose you down by 5 mg weekly and start you on greta. Take tramadol for pain first if this is not effective or you do not like the way it feels then you can try the roxicodone, you can take 5-10 mg as needed every 6 hours of the roxicodone. Referrals: Regla Reyes [Primary Care Provider] - (Will call patient will date and time of appointment. ) Miguelito Hernandez [OSTEOPATHIC DOCTOR] - (Will call patient will date and time of appointment. ) Activity:: Activity as Tolerated Equipment/Supplies:: No Equipment Needed Diet:: Other Discharge Orders Discharge Orders: Discharge Order (Routine); Ordered 05/09/20 Ordered By: Sofi Ross DS: Summary Time Spent with Patient providing and/or coordinating discharge services: Greater than 30 minutes (approx 60 mins spent discharging patient) Status at Discharge Functional status at discharge: independent ambulation Overall status at discharge: patient is progressing back to baseline Mental Status: mental status grossly normal Speech and Movement: speech and movement normal Mood: congruent mood Affect: normal affect Exam Narrative Exam Narrative: Sitting on edge of bed. Const General: cooperative, no acute distress, frail appearing and ill appearing chronically Nutritional Appearance: thin Orientation: alert, awake, oriented x3 and oriented to person HENMT Head: normal to inspection, normocephalic and atraumatic Mouth: moist mucous membranes abnormal Eyes Sclera: sclerae normal Pupils: PERRL Resp Effort & Inspection: normal respiratory effort Auscultation: clear to auscultation bilaterally Cardio Rate: regular rate Rhythm: regular rhythm Heart Sounds: S1 normal and S2 normal GI Inspection: normal to inspection Palpation: soft Auscultation: normal bowel sounds Skin General skin exam: no rashes or lesions noted Neuro General: patient alert, patient awake, patient oriented x3 and no focal motor deficits Cognition: normal cognition Speech: speech normal Extrem General: normal to inspection, full ROM, no pedal edema and no calf tenderness Psych Appearance: grossly normal Mental Status: mental status grossly normal Speech and Movement: speech and movement normal Mood: congruent mood Affect: normal affect DS: Data Vitals/I&O Vitals and I&O: Vital Signs Temperature 36.8 C 05/09/20 07:08 Temperature Source Tympanic 05/09/20 07:08 Pulse 46 L 05/09/20 07:08 Pulse Rhythm Regular 05/09/20 02:22 Respiratory Rate 18 05/09/20 07:08 Respiratory Effort Non-Labored 05/09/20 02:22 Respiratory Depth Normal 05/09/20 02:22 Respiratory Pattern Normal 05/09/20 02:22 Blood Pressure 108/69 05/09/20 07:08 Blood Pressure Position Sitting 05/05/20 16:39 Pulse Oximetry 100 05/09/20 07:08 Oxygen Delivery Method Room Air 05/09/20 07:08 Oxygen Flow Rate 0 05/09/20 07:08 Pain Level 3 05/09/20 07:26 Comment 05/07/20 23:50 Intake & Output 05/08/20 05/08/20 05/09/20 11:59 23:59 11:59 Intake Total 3580 / 4060 480 / 4060 240 / 240 Balance 3580 / 4060 480 / 4060 240 / 240 Intake: IV 1400 / 1400 Oral 2180 / 2660 480 / 2660 240 / 240 Other: Urine Color Yellow Yellow Urine Appearance Cloudy Clear Clear Urine Odor Normal Normal Comment Per pt. report, void x1 in the toilet. Per pt. report, void x1 in the toilet. voids independently in the bathroom Stool Occult Blood Negative Stool Size Small Stool Characteristics Soft Liquid Brown Voiding Methods Toilet Toilet Toilet Data Completed and Pending Completed studies during hospitalization [Text1]: IMPRESSION: 1. There is diffuse transmural enteritis of lung segment of the distal ileum. Most probably consistent with inflammatory bowel disease, particularly since there is also ankylosis of the sacroiliac joints. 2. Small amount of free fluid in the pelvis. I suspect this is from the edema o f the small bowel loops. 3. The stomach wall also appears somewhat edematous. 4. Appendix is fluid-filled with enhancing wall and exhibits diameter 7-8 millimeters. There is no air in the appendix. There is no appendicolith. No evidence of rupture. Possible low-grade a appendicitis. The appendix is retrocecal in position. Exam(s) a CT:CT abdomen & pelvis w EXAM: CT ABDOMEN PELVIS W CLINICAL HISTORY: ? appendictiis TECHNIQUE: COMPARISON: CT CT ABDOMEN PELVIS W from 05/05/2020 FINDINGS: CT examination of the abdomen and pelvis was performed with bolus infusion of 100 cc of Omnipaque 350. Images obtained through the lung bases are unremarkable. The liver appears normal with no evidence of a focal mass. Spleen is unremarkable in appearance.. Gallbladder and bile ducts are unremarkable. Pancreas is unremarkable in appearance. Adrenals appear normal bilaterally. Kidneys appear normal with no evidence of renal mass, hydronephrosis, or nephrolithiasis Note is made multiple enlarged mesenteric lymph nodes, most prominent in the right lower quadrant but extending to the central portion the mesentery. Abdominal aorta is of normal diameter and no major vascular abnormality is seen. Appendix is normal. Previously described abnormal distal small bowel is again noted with multiple loops irregular thick walled bowel noted. The appendix appears normal on today 's examination. There is moderate free fluid in the pelvis. There is question of irregular wall thickening rectosigmoid junction region. No free intraperitoneal air. No perforation or abscess identified. No significant abdominal wall hernia seen. Note is made of bilateral fused SI joints, the patient reportedly has a history of ankylosing spondylitis. Impression: No evidence of appendicitis. Findings highly suggestive of inflammatory process involving portions of the distal ileum and perhaps also the rectosigmoid. Free pelvic fluid and mesenteric adenopathy is also present consistent with an acute inflammatory process. Please correlate clinically regarding the possibility of Crohn's disease. Labs on day of discharge: Labs from last 24 hours 05/09/20 05/06/20 06:45 21:57 WBC 5.80 RBC 4.60 Hgb 13.6 Hct 40.1 MCV 87.2 MCH 29.6 MCHC 33.9 RDW 12.2 Plt Count 177 MPV 11.6 H Immature Gran % 2.6 Neutrophils % 56.0 Lymphocytes % 30.5 Monocytes % 9.7 Eosinophils % 0.7 Basophils % 0.5 Nucleated RBC % 0 Absolute Neutrophils 3.25 Absolute Lymphocytes 1.77 Absolute Monocytes 0.56 Absolute Eosinophils 0.04 Absolute Basophils 0.03 Stool Calprotectin 482 H Preliminary micro results at discharge 05/07/20 15:15 Blood Culture - Preliminary Blood NO GROWTH 24 HOURS 05/07/20 15:05 Blood Culture - Preliminary Blood NO GROWTH 24 HOURS COUNT INCLUDES THE [facility] Medical History (Updated 05/08/20 @ 11:29 by Celeste Sue MD) Gender identity disorder of adulthood, 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
[2020-05-09] MEDS: Normal Saline Flush 10 ML SYR IVP (11:25)
[2020-05-09] MEDS: Ketorolac 15 MG/ML VIAL IVP (11:25)
--- NOTE | 2020-05-09 18:34 | PDOC.CMDIS ---
- If Service Date Differs Date of service: 05/09/20 Time of Service: 18:34 LACE Index Scoring Tool - Questions: Length of Stay (in days): 4 - 6 Acuity (Admit via E.D.?): Yes E.D. Visits: 1 - Answers: Total Score: 8 Risk of Readmission: Low Risk Care Management Discharge Reason for Hospitalization: Enteritis Discharge Plan: Cheng will return home with no new services. He will folllow up with his surgeon, PCP and discharge plan of care and transport with friends. He has requested a nutrition consult as he feels with a new diagnosis of Crohn's disease, diet will be very important. Patient/Family Education Needs: Review of discharge instructions, dietary recommendations, follow up plan, limitations, Ask Me Three
== END 2020-05-09 13:05 | disposition home or self-care (01) | DRG 387 ==
LOC: ER 18:40 → MS 19:15
PROVIDERS: Nurse Practitioner Family; Surgery; Admitting Provider Family Medicine; Emergency Provider Emergency Medicine; PCP Nurse Practitioner Family; Visit Provider Family Medicine
PROC: 0DJD8ZZ Inspection of Lower Intestinal Tract, Via Natural or Artificial Opening Endoscopic (ICD-10-PCS; CPT 45378; principal; 2020-05-07 10:45)
DX: K50.10 Crohn's disease of large intestine without complications (principal); E06.3 Autoimmune thyroiditis; M48.1 Ankylosing hyperostosis [Forestier]; K59.00 Constipation, unspecified; R59.0 Localized enlarged lymph nodes
CPT/HCPCS: 45380; 36410; 36415; 80048; 80053; 83690; 86255; 87040; 87505; 87635; 88305; 96361; 96365; 96368; 96375; 99222; 99231; 99232; 99233; 99239; 99252; 99285; 74177; 81003; 82248; 83735; 83993; 85025; 86038; 86140; J0744; J1644; J1885; J2001; J2405; J2765; J3490; J7512; Q9967

== ENCOUNTER 2020-05-27 14:52 | Emergency (ER) | payer MEDICAID, SELFPAY ==
[2020-05-27] VITALS (15 sets, daily range): BP systolic 105–133; BP diastolic 63–84; PULSE 57–67; RESP 14–18; TEMP 36.6–36.8; O2SAT 95–99
--- NOTE | 2020-05-27 15:15 | DI.CT_ITS ---
EXAM: CT ABDOMEN PELVIS W CLINICAL HISTORY: ?crohns, severe abd pain 5 days worsening, ttp mid. TECHNIQUE: Imaging Protocol: Axial computed tomography images with coronal and sagittal reformatted images were created and reviewed CONTRAST MATERIAL: Intravenous: Visipaque 320 contrast volume:100 Oral: no COMPARISON: CT CT ABDOMEN PELVIS W from 05/07/2020 FINDINGS: ABDOMEN: Lung Bases: Normal where visualized. Liver: Normal density. No measurable mass. Gallbladder and biliary tract: No radiodense calculus or dilation. Pancreas: Normal density, no abnormal calcifications or inflammatory process. Spleen: Normal. Kidneys: Normal size, contour and axis. No radiodense stones or obstructive uropathy. No masses seen. Adrenal glands: No masses seen. Abdominal Aorta: Abdominal portion non-dilated. PELVIS: Bladder: Symmetric distention, no gross wall thickening. Bowel: No obstruction or bowel wall thickening. Large quantity of stool, consistent with constipation . Normal appendix. Previously noted inflammatory changes at the terminal ileum are no longer seen. Peritoneal cavity: No ascites, collection or mesenteric inflammatory response. Free pelvic fluid no l onger present. Bones: Partial bony fusion across the SI joints. Degenerative disc changes at L5-S1. Reproductive organs: Status post hysterectomy. Nonvisualized ovaries. Lymph nodes: Unremarkable. Decreased size of right lower quadrant lymph nodes since the previous exa m. Impression: Large quantity of stool. No evidence of small bowel inflammation. RADIATION DOSE DELIVERED: 656.5mGy.cm Total DLP DATA REPOSITORY: All CT scans at this facility are submitted to the National Radiology Data Registry (NRDR) Dose Index Registry (DIR) with the [employer] ([employer]). RADIATION OPTIMIZATION: All CT scans at this facility use at least one of these dose optimization te chniques: automated exposure control; mA and/or kV adjustment per patient size (includes targeted exa ms where dose is matched to clinical indication); or iterative reconstruction.
[2020-05-27] MEDS: Normal Saline Flush 10 ML SYR IVP (15:20)
[2020-05-27] MEDS: Lactated Ringers 1,000 ML 125 ML IV (15:25)
--- NOTE | 2020-05-27 15:27 | ED.GENADUL_ITS ---
Discharge Plan Disposition Patient Disposition: HOME Condition: Stable Discharge Details Clinical Impression: Abdominal pain, Constipation Primary Care Provider: Regla Reyes ED Provider: Dave Hoffman Home Meds and New Rx's Prescriptions: New docusate sodium [Dulcolax Stool Softener (dss)] 100 mg capsule 100 mg PO BID PRN (Reason: constipation) Qty: 30 RF: 0 Continued multivitamin [One Daily] 1 EACH tablet 1 ea PO DAILY RF: 0 testosterone cyp, micro (bulk) 5 GM powder 50 gm Miscellaneous WEEKLY RF: 0 levothyroxine 125 MCG tablet 1 tab PO DAILY RF: 0 fluoxetine 20 mg capsule 20 mg PO DAILY RF: 0 omeprazole 20 mg Capsule,Delayed Release(Dr/Ec) 20 mg PO DAILY@0730 Qty: 30 RF: 0 prednisone 20 mg Tablet 40 mg PO DAILY Qty: 21 RF: 0 tramadol 50 mg tablet 50 mg PO DAILY Qty: 20 RF: 0 promethazine 12.5 mg tablet 12.5 mg PO Q6H PRNQty: 30 RF: 0 Discontinued oxycodone [Roxicodone] 5 mg tablet 10 mg PO Q6H PRN PRNQty: 40 RF: 0 Discharge Instructions Instructions: Constipation (ED), Abdominal Pain (ED) Additional Instructions: Please use stool softener for constipation. Please take ibuprofen over the counter. Take 600mg by mouth every 6 hours as needed for pain. Please contact your primary care physician to arrange follow-up. Please follow-up with your industrial ecologist. Return to the ER for any worsening or new concerning symptoms. Stand Alone Forms: Work Release Referrals: Regla Reyes [Primary Care Provider] - Medical Decision Making 35-year-old who identifies as male, transgender from female, history of hysterectomy, history of ankylosing hyperostosis, recently diagnosed Crohn's colitis, started on Humira by rheumatology yesterday, here with worsening abdominal pain over the past 5 days. Patient was hospitalized a few weeks ago for colitis-CT at that time was interpreted by radiology: No evidence of appendicitis. Findings highly suggestive of inflammatory process involving portions of the distal ileum and perhaps also the rectosigmoid. Free pelvic fluid and mesenteric adenopathy is also present consistent with an acute inflammatory process. Please correlate clinically regarding the possibility of Crohn's disease. Consider acute intra-abdominal surgical process today including bowel perforation or abscess. Will initiate IV fluids, Zofran IV for nausea, Toradol IV for pain. Labs reviewed and nondiagnostic. Notably LFTs and lipase are normal. No leukocytosis. CT of the abdomen pelvis was interpreted by radiology: IMPRESSION: 1. This patient has a vagina despite the sex identified as male. No uterus is seen. 2. Excessive stool in the colon suggesting constipation. 3. Partial fusion of the bilateral sacroiliac joints. 4. Degenerative disc disease at L5-S1. 5. The terminal ileum is not well evaluated without oral contrast. Plan to treat constipation and have patient follow-up with gastroenterology. Disposition decision was made weighing the risks and benefits of hospitalization versus outpatient treatment, the risk for further decompensation, and the patient's wishes. The patient was stable and requested discharge. Prior to discharge, my usual and customary return precautions were reviewed with the patient - this included follow-up instructions and reason to return to the emergency department if condition worsens, does not improve as expected, or other new concerns arise. Work note was provided as requested. HPI General Mode of arrival: ambulatory . Date/Time Provider Initiated Documentation: 05/27/20 15:05 . Limitations to Documentation: no limitations . Information obtained by: patient . HPI Narrative: 35-year-old identifies as male, gender from female, with past medical history of ankylosing hyperostosis, recently diagnosed Crohn's colitis, here with 5 days of worsening abdominal pain. Pain is severe, currently rated 9/10, no modifiers, associated nausea, no vomiting, no bright red blood per rectum, did have small normal bowel movement this morning but has been constipated recently. Related Data Home Medications Medication Instructions Recorded Confirmed levothyroxine 1 tab PO DAILY 08/03/13 05/27/20 multivitamin [One Daily] 1 ea PO DAILY 06/18/14 05/27/20 testosterone cyp, micro (bulk) 50 gm MISCELLANEOUS WEEKLY 06/18/14 05/27/20 fluoxetine 20 mg PO DAILY 05/05/20 05/27/20 omeprazole 20 mg PO DAILY@0730 #30 cap 05/09/20 05/27/20 prednisone 40 mg PO DAILY #21 tab 05/09/20 05/27/20 promethazine 12.5 mg PO Q6H PRN #30 tab 05/09/20 05/27/20 tramadol 50 mg PO DAILY #20 tab 05/09/20 05/27/20 docusate sodium [Dulcolax Stool 100 mg PO BID PRN #30 cap 05/27/20 Softener (dss)] Previous Rx's Medication Instructions Recorded omeprazole 20 mg PO DAILY@0730 #30 cap 05/09/20 prednisone 40 mg PO DAILY #21 tab 05/09/20 promethazine 12.5 mg PO Q6H PRN #30 tab 05/09/20 tramadol 50 mg PO DAILY #20 tab 05/09/20 docusate sodium [Dulcolax Stool 100 mg PO BID PRN #30 cap 05/27/20 Softener (dss)] Allergies Allergy/AdvReac Type Severity Reaction Status Date / Time cefaclor [From Ceclor] AdvReac Severe Swelling/Ed Unverified 05/27/20 15:08 josefina lactose AdvReac Unverified 05/27/20 15:08 General Stated Complaint: Abd Prob PAPITO: 3 Review of Systems All systems reviewed & are unremarkable except as noted in HPI and below Constitutional Constitutional: Denies fever(s) Gastrointestinal Gastrointestinal: Reports as per HPI PFSH Medical History Gender identity disorder of adulthood, 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 Do you feel safe in your relationship?: Yes Exam Const General: cooperative and no acute distress HENMT Head: normocephalic Mouth: moist mucous membranes Eyes Conjunctivae: normal conjunctivae Sclera: normal sclerae Neck Neck: trachea midline and supple Resp Auscultation: clear to auscultation bilaterally, no rales, no rhonchi and no wheezes Cardio Rate: regular rate and not tachycardic Rhythm: regular rhythm GI Palpation: soft, not firm, no guarding, no masses, not rigid and tender (Mid abdomen) with no rebound tenderness Auscultation: normal bowel sounds Skin General skin exam: no rashes or lesions noted Neuro General: patient alert, patient awake, patient oriented x3 and tone normal Extrem General: no edema Psych Appearance: grossly normal Mental Status: mental status grossly normal Course Vital Signs Vital signs: Vital Signs Temperature 36.6 C 05/27/20 15:03 Pulse 67 05/27/20 15:03 Respiratory Rate 18 05/27/20 15:03 Blood Pressure 133/84 05/27/20 15:03 Pulse Oximetry 97 05/27/20 15:03 Temperature 36.6 C 05/27/20 15:03 Temperature Source Temporal Artery Scan 05/27/20 15:03 Pulse 67 05/27/20 15:03 Respiratory Rate 18 05/27/20 15:03 Respiratory Effort Non-Labored 05/27/20 15:06 Blood Pressure 133/84 05/27/20 15:03 Blood Pressure Position Sitting 05/27/20 15:03 Pulse Oximetry 97 05/27/20 15:03 Oxygen Delivery Method Room Air 05/27/20 15:03 Oxygen Flow Rate 0 05/27/20 15:03 Pain Level 9 05/27/20 15:03
[2020-05-27] MEDS: Ondansetron 4 MG/2 ML VIAL IVP (15:34)
[2020-05-27] MEDS: Ketorolac 15 MG/ML VIAL IVP (15:35)
[2020-05-27 15:37] LABS: Abs Immature Grans 0.03 10^3/uL (0.0-0.06); Absolute Basophil Count 0.01 10^3/uL (0.0-0.2); Absolute Lymphocyte Count 0.45 10^3/uL (1.2-3.4); Absolute Monocyte Count 0.27 10^3/uL (0.1-0.8); Absolute Neutrophil Count 5.02 10^3/uL (1.2-6.7); Basophils % 0.2; HCT 45.9 % (40.0-50.0); HGB 15.6 g/dL (13.5-17.5); Immature Grans % 0.5; Lymphocytes % 7.8; MCH 31.1 pg (27.0-33.0); MCV 91.4 fL (80-95); MPV 10.4 fL (8.0-11.0); Monocytes % 4.7; Neutrophils % 86.8; Nucleated RBC 0 %; Platelet Count 238 10^3/uL (130-400); RBC 5.02 10^6/uL (4.36-5.78); RDW 13.1 % (11.8-14.1); RDW-SD 43.4 fL; WBC 5.78 10^3/uL (4.4-10.8)
[2020-05-27 15:37] LABS: Bilirubin Negative (Negative); Blood Negative (Negative); Clarity Clear (Clear); Glucose Negative (Negative); Ketones Negative (Negative); Leukocyte Esterase Negative (Negative); Nitrite Negative (Negative); Urobilinogen 0.2 EU/dL (Up TO 0.2)
[2020-05-27 15:50] LABS: ALT 23 U/L (16-63); AST 8 U/L (15-37); Albumin 3.9 g/dL (3.4-5.0); Alkaline Phosphatase 53 U/L (46-116); BUN 12 mg/dL (7-18); Bilirubin, Total 0.4 mg/dL (0.2-1.0); Calcium 8.9 mg/dL (8.5-10.1); Chloride 104 mmol/L (98-107); Glucose 109 mg/dL (74-106); Lipase 106 U/L (73-393); Sodium 141 mmol/L (136-145); Total Protein 7.2 g/dL (6.4-8.2)
[2020-05-27] MEDS: Normal Saline - Diluent 50 ML VIAL IV (16:41)
--- NOTE | 2020-05-27 17:08 | DI.VRAD_ITS ---
PROCEDURE INFORMATION: Exam: CT Abdomen And Pelvis With Contrast Exam date and time: 05/27/2020 4:22 PM Age: 35 years old Clinical indication: Other: ? Crohns, severe abd pain 5 days worsening, ttp mid TECHNIQUE: Imaging protocol: Computed tomography of the abdomen and pelvis with contrast. Radiation optimization: All CT scans at this facility use at least one of these dose optimization techniques: automated exposure control; mA and/or kV adjustment per patient size (includes targeted exams where dose is matched to clinical indication); or iterative reconstruction. Contrast material: VISIPAQUE 320; Contrast volume: 100 ml; Contrast route: INTRAVENOUS (IV); COMPARISON: CT ABDOMEN PELVIS W 05/07/2020 1:37 PM FINDINGS: Liver: Normal. No mass. Gallbladder and bile ducts: Normal. No calcified stones. No ductal dilation. Pancreas: Normal. No ductal dilation. Spleen: Normal. No splenomegaly. Adrenal glands: Normal. No mass. Kidneys and ureters: Normal. No hydronephrosis. Stomach and bowel: Excessive stool in the colon suggesting constipation. Appendix: No evidence of appendicitis. Intraperitoneal space: Unremarkable. No free air. No significant fluid collection. Vasculature: Unremarkable. No abdominal aortic aneurysm. Lymph nodes: Unremarkable. No enlarged lymph nodes. Urinary bladder: Unremarkable as visualized. Reproductive: This patient has a vagina despite the sex identified as male. No uterus is seen. Bones/joints: Partial fusion of the bilateral sacroiliac joints. Degenerative disc disease at L5-S1. Soft tissues: Unremarkable. IMPRESSION: 1. This patient has a vagina despite the sex identified as male. No uterus is seen. 2. Excessive stool in the colon suggesting constipation. 3. Partial fusion of the bilateral sacroiliac joints. 4. Degenerative disc disease at L5-S1. 5. The terminal ileum is not well evaluated without oral contrast. Dictated and Authenticated by: Ana Lilia Alvarez MD. Ordering:TESSA Acosta MD
== END 2020-05-27 19:10 | disposition home or self-care (01) ==
PROVIDERS: Emergency Provider Student in an Organized Health Care Education/Training Program; PCP Nurse Practitioner Family
DX: K50.10 Crohn's disease of large intestine without complications (principal); K59.00 Constipation, unspecified; R10.33 Periumbilical pain
CPT/HCPCS: 36415; 80053; 83690; 96361; 96374; 99284; 74177; 81003; 85025; J1885; J2405

== ENCOUNTER 2020-06-15 03:48 | Outpatient (CLI) | payer MEDICAID, SELFPAY ==
[2020-06-15 16:00] LABS: Abs Immature Grans 0.01 10^3/uL (0.0-0.06); Absolute Basophil Count 0.02 10^3/uL (0.0-0.2); Absolute Lymphocyte Count 0.45 10^3/uL (1.2-3.4); Absolute Monocyte Count 0.18 10^3/uL (0.1-0.8); Absolute Neutrophil Count 3.67 10^3/uL (1.2-6.7); Basophils % 0.5; HGB 15.3 g/dL (13.5-17.5); Immature Grans % 0.2; Lymphocytes % 10.4; MCH 31.7 pg (27.0-33.0); MCHC 34.8 % (32.0-36.0); MCV 91.3 fL (80-95); MPV 10.8 fL (8.0-11.0); Monocytes % 4.2; Neutrophils % 84.7; Nucleated RBC 0 %; Platelet Count 228 10^3/uL (130-400); RBC 4.82 10^6/uL (4.36-5.78); RDW 12.8 % (11.8-14.1); RDW-SD 42.5 fL; WBC 4.33 10^3/uL (4.4-10.8)
[2020-06-15 17:02] LABS: ALT 21 U/L (16-63); AST 10 U/L (15-37); Albumin 4.1 g/dL (3.4-5.0); Alkaline Phosphatase 45 U/L (46-116); Bilirubin, Direct 0.1 mg/dL (0.0-0.2); Bilirubin, Total 0.5 mg/dL (0.2-1.0); Total Protein 6.9 g/dL (6.4-8.2)
[2020-06-15 17:07] LABS: C-Reactive Protein < 0.05 mg/dL (0.0-0.3)
== END 2020-06-15 03:49 | disposition home or self-care (01) ==
PROVIDERS: PCP Nurse Practitioner Family
DX: K52.9 Noninfective gastroenteritis and colitis, unspecified (principal)
CPT/HCPCS: 36415; 80076; 85025; 86140

== ENCOUNTER 2020-08-23 18:20 | Outpatient (REF) | payer MEDICAID, SELFPAY ==
[2020-08-23 22:19] LABS: TSH (W/Ref FT4) 0.04 uIU/mL (0.36-3.74)
[2020-08-23 22:40] LABS: FREE T4 1.42 ng/dL (0.76-1.46)
== END 2020-08-23 18:21 | disposition home or self-care (01) ==
LOC: NCHCN 18:20
PROVIDERS: PCP Nurse Practitioner Family; Visit Provider Nurse Practitioner Family
DX: E03.9 Hypothyroidism, unspecified (principal)
CPT/HCPCS: 84439; 84443